=== PATIENT | male | born 1995 | race African-American/Black ===

== ENCOUNTER 2023-04-11 18:09 | Observation (INO) | payer OTHER, SELFPAY ==
[2023-04-11 18:41] LABS: Bilirubin Neg (Negative); Blood, Urine 25 (Negative); Clarity Clear (Clear); Glucose, Urine (Dipstick) >=1000 mg/dL (Negative); Ketone, Urine 50 mg/dL (Negative); Leukocyte Negative (Negative); Nitrite Negative (Negative); Protein, Urine (Dipstick) 30 mg/dl (Neg-Trace); Urobilinogen Normal mg/dL (Less than 2)
[2023-04-11 18:57] LABS: Bacteria/HPF Rare-Few HPF (None Seen); CAUTI Indications for Culture Pelvic or flank pain; RBC/HPF 0-3 HPF (0-3); Squamous Epithelial 0-3 HPF (0-3); Urine Culture Reflex No No; WBC/HPF 0-3 HPF (0-3)
[2023-04-11 19:18] LABS: ALT (SGPT) 26 U/L (8-55); AST (SGOT) 19 U/L (5-34); Albumin 4.3 g/dL (3.5-5.0); Alkaline Phosphatase 99 U/L (40-110); Anion Gap 23 mmol/L (10-20); BUN (Urea Nitrogen) 12 mg/dL (8.9-20.6); Bilirubin, Total 0.3 mg/dL (0.2-1.2); Calc. Creatinine Clearance 0 mL/min (70-130); Calcium 9.7 mg/dL (7.8-10.44); Carbon Dioxide 17 mmol/L (22-29); Chloride 101 mmol/L (98-107); Estimated GFR 105; Globulin 3.9 g/dL (2.4-3.5); Glucose 160 mg/dL (70-105); Lipase 501 U/L (8-78); Potassium 3.9 mmol/L (3.5-5.1); Protein, Total 8.2 g/dL (6.0-8.3); Sodium 137 mmol/L (136-145)
[2023-04-11 19:33] LABS: #Neutrophils 9.7 10x3/uL (1.5-8.4); %Basophils 0.6 % (0.0-2.0); %Eosinophils 1.7 % (0.0-6.0); %Lymphocytes 14.9 % (18.0-47.0); %Monocytes 5.5 % (0.0-10.0); %Neutrophils 76.7 % (40.0-75.0); Hematocrit 47.1 % (38.8-50.0); Hemoglobin 16.5 g/dL (13.5-17.5); Mean Corpuscular Hemoglobin 28.4 pg (27.0-33.0); Mean Corpuscular Volume 80.9 fl (81.2-95.1); Mean Platelet Volume 12.9 fl (7.4-10.4); Platelet Count 167 10x3/uL (150-450); Red Blood Cell (RBC) Count 5.82 10x6/uL (4.32-5.72); White Blood Cell (WBC) Count 12.6 10x3/uL (3.5-10.5)
[2023-04-11 19:34] LABS: #Basophils 0.1 10x3/uL (0.0-0.2); #Eosinphils 0.2 10x3/uL (0.0-0.5); #Monocytes 0.7 10x3/uL (0.0-1.1)
[2023-04-11] MEDS ORDERED: Morphine 10 MG/ML VIAL ONE (19:59)
[2023-04-11] MEDS ORDERED: Ondansetron PF 4 MG/2 ML Vial ONE (20:00)
[2023-04-11 22:41] LABS: Lactic Acid 2.2 mmol/L (0.5-2.2)
[2023-04-11] MEDS ORDERED: Ondansetron PF 4 MG/2 ML Vial IVP PRN (23:07)
[2023-04-11] MEDS ORDERED: Dextrose 50% Abboject 50 ML SYRINGE SLOW IVP PRN (23:11)
[2023-04-11] MEDS ORDERED: Glucagon 1 MG/ML KIT IM PRN (23:11)
[2023-04-11] MEDS ORDERED: Dextrose 5% in Water 1,000 ML IV PRN (23:11)
[2023-04-11] MEDS: Morphine 4 MG/ML VIAL SLOW IVP PRN (23:57)
[2023-04-12] MEDS: Potassium Chloride 20 MEQ in Lactated Ringer's 1,000 ML IV SCH ×4 (00:10→20:36)
[2023-04-12] MEDS: HumaLOG 300 UNITS/3 ML VIAL SC PRN ×3 (00:11→22:03)
[2023-04-12 01:14] VITALS: BMI 41.5
[2023-04-12] MEDS: Morphine 4 MG/ML VIAL SLOW IVP PRN ×5 (04:19→21:00)
[2023-04-12 04:29] LABS: #Eosinphils 0.3 10x3/uL (0.0-0.5); #Monocytes 0.8 10x3/uL (0.0-1.1); %Basophils 0.4 % (0.0-2.0); %Eosinophils 2.6 % (0.0-6.0); %Lymphocytes 27.7 % (18.0-47.0); %Monocytes 7.7 % (0.0-10.0); Mean Corpuscular Hemoglobin 31.6 pg (27.0-33.0); Mean Corpuscular Volume 83.5 fl (81.2-95.1); Platelet Count 148 10x3/uL (150-450); RBC Distribution Width 13.6 % (11.5-14.5); White Blood Cell (WBC) Count 9.9 10x3/uL (3.5-10.5)
[2023-04-12 04:46] LABS: Anion Gap 23 mmol/L (10-20); BUN (Urea Nitrogen) 8 mg/dL (8.9-20.6); Calc. Creatinine Clearance 205 mL/min (70-130); Calcium 8.8 mg/dL (7.8-10.44); Carbon Dioxide 13 mmol/L (22-29); Chloride 102 mmol/L (98-107); Estimated GFR 105; Glucose 224 mg/dL (70-105); Lipase 459 U/L (8-78); Magnesium 1.8 mg/dL (1.6-2.6); Sodium 134 mmol/L (136-145)
[2023-04-12 04:52] LABS: Cardiac Risk 33.3 (Less than 4.5); Cholesterol 466 mg/dl (< 200 Desired); HDL Cholesterol 14 mg/dL (>60 Neg Risk); Triglycerides 2823 mg/dL (Less than 150)
[2023-04-12 05:09] LABS: Hematocrit 42.7 % (38.8-50.0); Hemoglobin 14.6 g/dL (13.5-17.5); Mean Corpuscular HGB CONC 34.2 g/dL (32.0-36.0); Red Blood Cell (RBC) Count 5.17 10x6/uL (4.32-5.72)
[2023-04-12] MEDS: Fenofibrate 48 MG TAB PO SCH (08:30)
[2023-04-12 13:54] LABS: Glucose 225 mg/dL (70-105)
[2023-04-12 17:37] LABS: ALT (SGPT) 23 U/L (8-55); AST (SGOT) 21 U/L (5-34); Albumin 3.7 g/dL (3.5-5.0); Alkaline Phosphatase 79 U/L (40-110); Anion Gap 22 mmol/L (10-20); BUN (Urea Nitrogen) 5 mg/dL (8.9-20.6); Bilirubin, Total 0.5 mg/dL (0.2-1.2); Calc. Creatinine Clearance 225 mL/min (70-130); Calcium 9.2 mg/dL (7.8-10.44); Carbon Dioxide 15 mmol/L (22-29); Chloride 102 mmol/L (98-107); Estimated GFR 118; Globulin 4.1 g/dL (2.4-3.5); Glucose 265 mg/dL (70-105); Magnesium 1.7 mg/dL (1.6-2.6); Protein, Total 7.8 g/dL (6.0-8.3); Sodium 135 mmol/L (136-145)
[2023-04-12] MEDS ORDERED: Atorvastatin Calcium 40 MG TAB PO SCH (21:00)
[2023-04-12 21:43] LABS: Glucose 285 mg/dL (70-105)
[2023-04-13] MEDS: Morphine 4 MG/ML VIAL SLOW IVP PRN ×3 (01:01→08:56)
[2023-04-13 01:19] LABS: Glucose 199 mg/dL (70-105)
[2023-04-13] MEDS: HumaLOG 300 UNITS/3 ML VIAL SC PRN ×2 (01:28→05:40)
[2023-04-13] MEDS: Potassium Chloride 20 MEQ in Lactated Ringer's 1,000 ML IV SCH (01:34)
[2023-04-13 05:39] LABS: #Eosinphils 0.3 10x3/uL (0.0-0.5); #Monocytes 0.5 10x3/uL (0.0-1.1); #Neutrophils 3.8 10x3/uL (1.5-8.4); %Basophils 0.6 % (0.0-2.0); %Eosinophils 3.9 % (0.0-6.0); %Lymphocytes 31.9 % (18.0-47.0); %Monocytes 7.3 % (0.0-10.0); %Neutrophils 55.9 % (40.0-75.0); Glucose 209 mg/dL (70-105); Hemoglobin 13.9 g/dL (13.5-17.5); Mean Corpuscular HGB CONC 34.8 g/dL (32.0-36.0); Mean Corpuscular Volume 83.5 fl (81.2-95.1); Mean Platelet Volume 12.1 fl (7.4-10.4); Platelet Count 123 10x3/uL (150-450); RBC Distribution Width 13.7 % (11.5-14.5); Red Blood Cell (RBC) Count 4.79 10x6/uL (4.32-5.72); White Blood Cell (WBC) Count 6.9 10x3/uL (3.5-10.5)
[2023-04-13] MEDS: Fenofibrate 48 MG TAB PO SCH (08:56)
[2023-04-13 09:27] LABS: ALT (SGPT) 22 U/L (8-55); AST (SGOT) 36 U/L (5-34); Albumin 3.3 g/dL (3.5-5.0); Alkaline Phosphatase 65 U/L (40-110); Anion Gap 22 mmol/L (10-20); BUN (Urea Nitrogen) 5 mg/dL (8.9-20.6); Bilirubin, Total 0.4 mg/dL (0.2-1.2); Calc. Creatinine Clearance 225 mL/min (70-130); Calcium 9.2 mg/dL (7.8-10.44); Carbon Dioxide 17 mmol/L (22-29); Chloride 102 mmol/L (98-107); Estimated GFR 118; Globulin 4.2 g/dL (2.4-3.5); Glucose 210 mg/dL (70-105); Magnesium 1.8 mg/dL (1.6-2.6); Potassium 4.8 mmol/L (3.5-5.1); Protein, Total 7.5 g/dL (6.0-8.3); Sodium 136 mmol/L (136-145)
[2023-04-13 09:53] LABS: Glucose 207 mg/dL (70-105)
[2023-04-13] MEDS ORDERED: traMADol HCl 50 MG TAB PO PRN (10:35)
[2023-04-13] MEDS ORDERED: Ondansetron ODT 4 MG TAB PO PRN (10:37)
[2023-04-13 11:59] LABS: Lipase 208 U/L (8-78)
[2023-04-13 12:18] LABS: Triglycerides 1480 mg/dL (Less than 150)
[2023-04-13 13:07] VITALS: BP 130/96; TEMP 98.9
[2023-04-14] MEDS ORDERED: Fenofibrate Nanocrystallized 145 MG TAB PO SCH (09:00)
== END 2023-04-13 13:30 | disposition home or self-care (01) ==
LOC: CSHERS 18:09 → CSHTELE 23:43
PROVIDERS: ADMIT Family Medicine; ATTEND Family Medicine
DX: K85.90 Acute pancreatitis without necrosis or infection, unspecified (principal); E78.1 Pure hyperglyceridemia; E87.20 Acidosis, unspecified; E78.5 Hyperlipidemia, unspecified; E11.9 Type 2 diabetes mellitus without complications; E66.01 Morbid (severe) obesity due to excess calories; Z68.41 Body mass index [BMI] 40.0-44.9, adult; Z79.84 Long term (current) use of oral hypoglycemic drugs; Z79.899 Other long term (current) drug therapy; Z79.4 Long term (current) use of insulin
CPT/HCPCS: 36415; 36416; 80048; 80053; 80061; 81001; 82010; 82947; 83605; 83690; 83735; 84478; 85025; 87040; 87086; 93005; 96376; G0378; J1650; J1815; J2270; J2405; J3480; J7120